=== PATIENT | female | born 1945 | race Caucasian/White ===

== ENCOUNTER 2018-10-25 13:38 | Emergency (ER) | payer OTHER ==
[2018-10-25 13:56] VITALS: BP 133/66
[2018-10-25] MEDS ORDERED: DIAZEPAM 5 MG TAB PO ONE (14:31)
--- NOTE | 2018-10-25 14:37 | EDPHY ---
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 It is bilateral. No midline pain. No radiation to her legs. She is able to ambulate. No weakness or numbness or paresthesias. No bowel or bladder abnormalities. No history of cancer. No history of spinal abnormalities. No recent fevers or illness. Severity: Moderate Modifying factors: She has had some improvement with ibuprofen at home REVIEW OF SYSTEMS: Constitutional: denies: chills, fever, recent illness, recent injury EENTM: denies: blurred vision, double vision, nose congestion Respiratory: denies: cough, shortness of breath Cardiac: denies: chest pain, irregular heart rate, lightheadedness, palpitations Gastrointestinal/Abdominal: denies: abdominal pain, diarrhea, nausea, vomiting, blood streaked stools Genitourinary: denies: dysuria, frequency, hematuria, pain Musculoskeletal: See HPI Skin: denies: lesions, rash, jaundice, bruising Neurological: denies: headache, numbness, paresthesia, tingling, dizziness, weakness Hematologic/Lymphatic: denies: blood clots, easy bleeding, easy bruising Immunologic/allergic: denies: HIV/AIDS, transplant 10 systems reviewed and negative except as noted EXAM: GENERAL: Well-appearing, well-nourished and in no acute distress. HEAD: Atraumatic, normocephalic. EYES: Pupils equal round and reactive to light, extraocular movements intact, sclera anicteric, conjunctiva are normal. ENT: TMs normal, nares patent, oropharynx clear without exudates. Moist mucous membranes. NECK: Normal range of motion, supple without lymphadenopathy or JVD. LUNGS: Breath sounds clear to auscultation bilaterally and equal. No wheezes rales or rhonchi. HEART: Regular rate and rhythm without murmurs, rubs or gallops. ABDOMEN: Soft, nontender, normoactive bowel sounds. No guarding, no rebound. No masses appreciated. BACK: Bilateral paraspinous muscle pain in the lumbar region. No radiation. No CVA tenderness, no spinal tenderness, step-offs or deformities EXTREMITIES: Normal range of motion, no pitting or edema. No clubbing or cyanosis. NEUROLOGICAL: Cranial nerves II through XII grossly intact. Normal speech, normal gait. 5/5 strength, normal movement in all extremities, normal sensation , normal reflexes PSYCH: Normal mood, normal affect. SKIN: Warm, dry, normal turgor, no visible rashes or lesions. Source: Patient, Family Exam Limitations: No limitations - Personal History Current Tetanus/Diphtheria Vaccine: No Current Tetanus Diphtheria and Acellular Pertussis (TDAP): No - Medical/Surgical History Hx Asthma: No Hx Chronic Respiratory Disease: No Hx Diabetes: No Hx Cardiac Disease: No Hx Renal Disease: No Hx Cirrhosis: No Hx Alcoholism: No Hx HIV/AIDS: No Hx Splenectomy or Spleen Trauma: No Other PMH: Med hx-hyperthyroid,glaucoma. Surg-cornelius,wisdom teeth,tonsils - Family History Significant Family History: No pertinent family hx - Social History Smoking Status: Never smoked Alcohol Use: None Constitutional: Initial Vital Signs Temperature (C) 36.8 C 10/25/18 13:53 Heart Rate 71 10/25/18 13:53 Respiratory Rate 14 10/25/18 13:53 Blood Pressure 133/66 H 10/25/18 13:53 O2 Sat (%) 98 10/25/18 13:53 O2 Delivery Mode Room Air Allergies/Adverse Reactions: Sulfa (Sulfonamide Antibiotics) Allergy (Verified 10/25/18 14:10) Home Medications: Medication Instructions Recorded Levothyroxine 09/08/10 Eye Gtts Glaucoma 09/11/14 Diazepam [Valium 5 MG (*)] 5 mg PO TID PRN #15 tab 10/25/18 Latanoprost 10/25/18 Medical Decision Making ED Course/Re-evaluation: The patient's history and exam were consistent with muscle strain. There is no radiation or neurologic deficits. No bowel or bladder abnormalities. Normal strength and sensation and reflexes. We discussed utility of imaging which I think is low. She agrees and we agreed to start her on muscle relaxants and rest and ice therapy. I advised her to return for further workup and possibly imaging of her symptoms are not improving over the next several days or she develops concerning neurologic symptoms or fevers. Differential Diagnosis: Partial list of the Differential diagnosis considered include but were not limited to; lumbar strain, fracture and although unlikely based on the history and physical exam, I also considered radiculopathy, cauda equina, infection, cancer. I discussed these differential diagnoses and the plan with the patient as well as the usual and expected course. The patient understands that the diagnosis is provisional and that in medicine we are not always correct and that further workup is often warranted. Usual and customary warnings were given. All of the patient's questions were answered. The patient was instructed to return to the emergency department should the symptoms at all worsen or return, otherwise to followup with the physician as we discussed. - Data Points Medications Given: Discontinued Medications Diazepam (Valium) 5 mg PO EDNOW ONE Stop: 10/25/18 14:32 Last Admin: 10/25/18 14:45 Dose: 5 mg Departure - Departure Disposition: Home, Routine, Self-Care Clinical Impression: Low back pain Qualifiers: Chronicity: acute Back pain laterality: bilateral Sciatica presence: without sciatica Qualified Code(s): M54.5 - Low back pain Condition: Fair Instructions: Diazepam (By mouth), Acute Low Back Pain (ED) Referrals: Arlin Rogers MD [Primary Care Provider] - As per Instructions Prescriptions: Diazepam [Valium 5 MG (*)] 5 mg PO TID PRN #15 tab PRN Reason: Spasms
== END 2018-10-25 14:46 | disposition home or self-care (01) ==
LOC: CED 13:38
DX: M54.5 Low back pain (principal)
CPT/HCPCS: 99283-ER